=== PATIENT | male | born 2000 | race Caucasian/White ===

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

== ENCOUNTER 2023-08-10 08:08 | Emergency (ER) | payer SELFPAY ==
[~2023-08-10] VITALS: Ht 172.7 cm; Wt 90.9 kg
[~2023-08-10 08:08] MED LIST changes: +DOXYCYCLINE 10100 MG PO; +FLONASE NASAL S16 GM NS; +FLOVENT 220MCG7.9 GM IH; +PHENERGAN W/CO120 M1 PO; +PROAIR HFA0.09 MG/AC IH
[2023-08-10 08:13] VITALS: TEMP 97.1
[2023-08-10] MEDS ORDERED: AMOXICILLIN 50500 MG PO (08:32)
[2023-08-10 08:44] VITALS: BP 141/98; PULSE 82
[2023-08-10] MEDS ORDERED: Amoxicillin 500 MG CAP PO ONE (08:45)
== END 2023-08-10 08:44 | disposition home or self-care (01) ==
LOC: COL.ER 08:08
DX: H66.93 Otitis media, unspecified, bilateral (principal)